=== PATIENT | female | born 1965 | race Caucasian/White ===

== ENCOUNTER 2017-07-30 08:10 | Emergency (ER) | payer OTHER, MEDICAID ==
[2017-07-30 14:52] VITALS: BP 131/79
== END 2017-07-30 14:52 | disposition home or self-care (01) ==
LOC: ED 08:10
DX: G89.29 Other chronic pain (principal); M79.1 Myalgia; M25.50 Pain in unspecified joint; I10 Essential (primary) hypertension; E07.9 Disorder of thyroid, unspecified; Z88.8 Allergy status to other drugs, medicaments and biological substances
CPT/HCPCS: J1170; Q0162